=== PATIENT | male | born 1985 | race Caucasian/White ===

== ENCOUNTER 2025-07-25 08:46 | Emergency (ER) | payer SELFPAY ==
[2025-07-25 08:48] VITALS: BP 140/81; PULSE 69; RESP 16; TEMP 36.9; O2SAT 92; BMI 21.5
--- NOTE | 2025-07-25 08:51 | ED_ITS ---
HPI - Seizure 2 General: Chief Complaint: Neuro Symptoms/Deficit Stated Complaint: seizures Time Seen by Provider: 07/25/25 08:50 History of Present Illness: HPI Narrative: 40-year-old man who presents to the [facility] room with convulsive symptoms. He says he takes lamotrigine for this. He is able to talk to me while he is having these seizures . He says he follows with a neurologist in [place]. He takes medications for this. He is actively convulsing but discusses his medical problems with me. He complains of left shoulder pain that happened while this is going on. Related Data Allergies Allergy/AdvReac Type Severity Reaction Status Date / Time Sulfa (Sulfonamide Allergy ADR-Seizure Verified 07/25/25 08:53 Antibiotics) Review of Systems 2 Narrative: Constitutional symptoms: Negative except as documented in HPI. Skin symptoms: Negative except as documented in HPI. Eye symptoms: Negative except as documented in HPI. ENMT symptoms: Negative except as documented in HPI. Respiratory symptoms: Negative except as documented in HPI. Cardiovascular symptoms: Negative except as documented in HPI. Gastrointestinal symptoms: Negative except as documented in HPI. Genitourinary symptoms: Negative except as documented in HPI. Musculoskeletal symptoms: Negative except as documented in HPI. Neurologic symptoms: Negative except as documented in HPI. Psychiatric symptoms: Negative except as documented in HPI. Endocrine symptoms: Negative except as documented in HPI. Physical Exam 2 Narrative: EXAM NARRATIVE: General: Alert, no acute distress. Skin: Warm, dry. Head: Normocephalic, atraumatic. Neck: Supple, trachea midline. Eye: Extraocular movements are intact. Ears, nose, mouth and throat: mucosa moist. Cardiovascular: Regular, Normal peripheral perfusion. Respiratory: Lungs are clear to auscultation, respirations are non-labored, breath sounds are equal, Symmetrical chest wall expansion. Gastrointestinal: Soft, Nontender, Non distended Musculoskeletal: Appears to have a bit of an AC separation on the left. Limited active range of motion because of pain. Neurological: Alert and oriented, No focal neurological deficit observed. Patient is having convulsive type movements. He is able to talk to me while this is going on. Psychiatric: Cooperative, appropriate mood & affect. Course 2 Vital Signs: Vital signs: Vital Signs Temperature 98.4 F 07/25/25 08:48 Pulse Rate 69 07/25/25 08:48 Respiratory Rate 16 10/19/25 08:48 Blood Pressure 140/81 07/25/25 08:48 Pulse Oximetry 92 07/25/25 08:48 Oxygen Delivery Me thod Room Air 07/25/25 08:48 MDM - Seizure MDM Narrative Medical decision making narrative: Medical decision making: Differential diagnosis for this patient with a complaint of seizure like activity would include but not be limited to, and based on the above HPI, review of systems and physical exam: seizure, DT's, alcohol withdrawal, brain malignancy, pseudo-seizure, syncope. Orders placed to evaluate differential diagnosis based on the above differential, HPI and physical exam Lab Review: Laboratory results were reviewed and interpreted by myself the emergency room physician No leukocytosis. No anemia. No renal failure. Lactate is mildly elevated at 2.5. Urinalysis is negative for infection. Drug screen positive for marijuana only. X-ray of the left shoulder: Appears to have an AC separation likely old and possibly worsened today. I discussed these films with Dr. Meehan who is on- call with orthopedics and he feels that this is the case. No acute fractures or dislocation at this time. Films were interpreted by myself the emergency room provider and pending final radiology review. Consultation: As above I spoke with Dr. Meehan I reviewed the patient's medical record. Reexamination: Patient remained stable. No increased work of breathing. No altered mental status. No focal motor deficits. I am able to passively move the shoulder through and almost full range of motion. He has pain with active range of motion. We discussed this further and he said he used to be double-jointed in his shoulder and has had issues with it before. I think is worsened an AC separation. Assessment and plan: Convulsions/seizures Shoulder injury ?IV Ativan and a shoulder sling. - Discharged home - Discussed plan with patient. Answered any questions. - Evaluation and treatment of this problem were appropriate in the emergency setting. Lab Data 07/25/25 09:05 07/25/25 09:05 Labs: Laboratory Results WBC 9.45 10^3/uL (3.29-11.43) 07/25/25 09:05 RBC 5.07 10^6/uL (3.85-5.65) 07/25/25 09:05 Hgb 15.50 g/dL (11.27-16.99) 07/25/25 09:05 Hct 47.0 % (37-53) 07/25/25 09:05 MCV 92.7 fl (82-101) 07/25/25 09:05 MCH 30.6 pg (27-33) 07/25/25 09:05 MCHC 33.0 g/dL (30-55) 07/25/25 09:05 RDW 12.1 % (12.1-15.1) 07/25/25 09:05 Plt Count 238 10^3/cmm (157-399) 07/25/25 09:05 MPV 10.5 fL (7.4-10.4) H 07/25/25 09:05 Neut % (Auto) 68.0 % 07/25/25 09:05 Lymph % (Auto) 22.5 % 07/25/25 09:05 Lincoln % (Auto) 8.0 % 07/25/25 09:05 Eos % (Auto) 0.7 % 07/25/25 09:05 Baso % (Auto) 0.5 % 07/25/25 09:05 Neut # (Auto) 6.41 10^3/uL (1.8-7.7) 07/25/25 09:05 Lymph # (Auto) 2.1 10^3/uL (0.8-4.8) 07/25/25 09:05 Lincoln # (Auto) 0.8 10^3/uL (0.2-0.9) 07/25/25 09:05 Eos # (Auto) 0.1 10^3/uL (0.0-0.8) 07/25/25 09:05 Baso # (Auto) 0.1 10^3/uL (0.0-0.1) 07/25/25 09:05 Nucleated RBC % (auto) 0 % 07/25/25 09:05 Nucleated RBCs # 0.0 /100WBC 07/25/25 09:05 Sodium 139 mmol/L (136-145) 07/25/25 09:05 Potassium 4.5 mmol/L (3.5-5.1) 07/25/25 09:05 Chloride 103 mmol/L (98-107) 07/25/25 09:05 Carbon Dioxide 23 mmol/L (22-29) 07/25/25 09:05 Anion Gap 17.5 (5-19) 07/25/25 09:05 BUN 9 mg/dL (6-20) 07/25/25 09:05 Creatinine 0.8 mg/dL (0.7-1.2) 07/25/25 09:05 GFR Calculation 106.5 mL/min (90-130) 07/25/25 09:05 Glucose 121 mg/dL (65-115) H 07/25/25 09:05 Calculated Osmolality 288 mOsm/kg (285-295) 07/25/25 09:05 Lactic Acid 2.4 mmol/L (0.5-2.2) H 07/25/25 09:05 Calcium 10.0 mg/dL (8.5-10.5) 07/25/25 09:05 Total Bilirubin 0.5 mg/dL (0.15-1.2) 07/25/25 09:05 AST 20 U/L (0-40) 07/25/25 09:05 ALT 11 U/L (0-41) 07/25/25 09:05 Alkaline Phosphatase 92 U/L (40-130) 07/25/25 09:05 Total Protein 7.8 g/dL (6.6-8.7) 07/25/25 09:05 Albumin 4.8 g/dL (3.5-5.2) 07/25/25 09:05 Globulin 3.0 g/dL (1.3-4.6) 07/25/25 09:05 Urine Color Yellow (Yellow) 07/25/25 09:16 Urine Appearance Clear (CLEAR) 07/25/25 09:16 Urine pH 6.5 (5-7) 07/25/25 09:16 Ur Specific Mobile 1.009 (1.005-1.030) 07/25/25 09:16 Urine Protein Negative (Negative) 07/25/25 09:16 Urine Glucose (UA) Negative (Normal) 07/25/25 09:16 Urine Ketones Negative (Negative) 07/25/25 09:16 Urine Blood Negative (Negative) 07/25/25 09:16 Urine Nitrate Negative (Negative) 07/25/25 09:16 Urine Bilirubin Negative (Negative) 07/25/25 09:16 Urine Urobilinogen 0.2 mg/dL (Negative) 07/25/25 09:16 Ur Leukocyte Esterase Negative (Negative) 07/25/25 09:16 Urine RBC 0-4 /hpf (0-2) H 07/25/25 09:16 Urine WBC 0-4 /hpf (0-5) H 07/25/25 09:16 Ur Squamous Epith Cells 0-4 /hpf (0-5) H 07/25/25 09:16 Amorphous Sediment Not Reportable 07/25/25 09:16 Urine Bacteria Trace /hpf (NONE) 07/25/25 09:16 Urine Opiates Screen Negative ng/mL (Negative) 07/25/25 09:16 Ur Barbiturates Screen Negative ng/mL (Negative) 07/25/25 09:16 Ur Phencyclidine Scrn Negative ng/mL (Negative) 07/25/25 09:16 Ur Amphetamines Screen Negative ng/mL (Negative) 07/25/25 09:16 U Benzodiazepines Scrn Negative ng/mL (Negative) 07/25/25 09:16 Urine Cocaine Screen Negative ng/mL (Negative) 07/25/25 09:16 U Marijuana (THC) Screen Positive ng/mL (Negative) H 07/25/25 09:16 XR interpretation done by ED provider, pending radiology final review Discharge Plan Discharge Patient Disposition: Home Clinical Impression: Convulsions, Acromioclavicular joint separation Condition: Stable Discharge Orders: Discharge ED (Routine); Ordered 07/25/25 Ordered By: Danielle Chopra Referrals: reba [Other] Margarito Meehan MD [Physician, Orthopedics] - 4-7 days Referral Note: Call for appointment if pain persists with either Dr. Meehan or orthopedic doctor of your choosing Discharge Diet: Usual diet Discharge Activity: Increase activity as tolerated Patient Instructions: How to Use a Sling (ED), Opioid Safety, Pain Management, Patient Portal & Yazmin Instructions Activity Restrictions/Additional Instructions: Thank you for choosing [facility] for your healthcare needs today. You have been screened and evaluated and felt safe for discharge. Health conditions do change or evolve sometimes and as such it is important that you follow up with your Primary Doctor to be re checked, 3-5 days is a general good time frame for follow up. You are always welcome to return to the ED for re assessment if your symptoms are worsening or you have new concerns Print Language: Cymraes Coding Level of Care Code ED Phlebotomist Associate for Elina Hernández
--- NOTE | 2025-07-25 08:52 | XRR_ITS ---
PROCEDURE INFORMATION: Exam: XR Left Shoulder Exam date and time: 07/25/2025 8:58 AM Age: 40 years old Clinical indication: Pain; Shoulder; Left; Additional info: Lt shoulder after seizure/fall from wheelchair TECHNIQUE: Imaging protocol: Radiologic exam of the left shoulder. Views: 2 or more views. COMPARISON: No relevant prior studies available. FINDINGS: Bones/joints: Corticated foci of mineralization along the acromioclavicular joint, likely reflecting sequela of prior injury. There may also be some flattening of the posterolateral aspect of the humeral head, which could reflect sequela of prior dislocation. No definite acute fracture demonstrated. Lungs: The visualized left lung is clear. Soft tissues: Unremarkable. XR/XR shoulder LT min 2V* [id number] IMPRESSION: 1. Corticated foci of mineralization along the acromioclavicular joint, likely reflecting sequela of prior injury. There may also be some flattening of the posterolateral aspect of the humeral head, which could reflect sequela of prior dislocation. Correlation with prior exams would be helpful, if available. 2. No definite acute fracture or dislocation demonstrated.
[2025-07-25] MEDS: LORazepam 1 MG/0.5 ML injection 2 MG IVP (09:04)
[2025-07-25 09:15] LABS: Hematocrit 47.0 % (37-53); Hemoglobin 15.50 g/dL (11.27-16.99); Mean Corpuscular HGB Conc 33.0 g/dL (30-55); Mean Corpuscular Hemoglobin 30.6 pg (27-33); Mean Corpuscular Volume 92.7 fl (82-101); Nucleated Red Blood Cells % 0 %; Platelet Count 238 10^3/cmm (157-399); Red Blood Count 5.07 10^6/uL (3.85-5.65); White Blood Count 9.45 10^3/uL (3.29-11.43)
[2025-07-25 09:40] LABS: Glucose Urine UA Negative (Normal); Nitrate Urine Negative (Negative); Specific Gravity, Urine 1.009 (1.005-1.030)
[2025-07-25 09:47] LABS: Alanine Aminotransferase 11 U/L (0-41); Albumin Level 4.8 g/dL (3.5-5.2); Alkaline Phosphatase 92 U/L (40-130); Blood Urea Nitrogen 9 mg/dL (6-20); Calcium 10.0 mg/dL (8.5-10.5); Carbon Dioxide 23 mmol/L (22-29); Chloride 103 mmol/L (98-107); Creatinine Clr Calc Pharmacy 122.0581; Globulin 3.0 g/dL (1.3-4.6); Glucose 121 mg/dL (65-115); Lactic Sepsis W/Reflex 2.4 mmol/L (0.5-2.2); Osmolality Calculated 288 mOsm/kg (285-295); Sodium 139 mmol/L (136-145); Total Protein 7.8 g/dL (6.6-8.7)
[2025-07-25 09:48] LABS: PCP Screen Urine Negative (Negative)
[2025-07-25 09:50] LABS: Anion Gap 17.5 (5-19); Aspartate Amino Transferase 20 U/L (0-40); Potassium 4.5 mmol/L (3.5-5.1)
[2025-07-25 09:58] LABS: Reflex Lactate Order REFLEX LACTIC ORDERD
[2025-07-25 10:35] VITALS: BP 126/81; PULSE 59; O2SAT 99
== END 2025-07-25 10:38 | disposition home or self-care (01) ==
PROVIDERS: Emergency Provider Emergency Medicine
DX: R56.9 Unspecified convulsions (principal); S43.102A Unspecified dislocation of left acromioclavicular joint, initial encounter; W05.0XXA Fall from non-moving wheelchair, initial encounter
CPT/HCPCS: 73030; 80053; 80306; 81001; 83605; 85025; 96374; 99284; A4565; J2060